=== PATIENT | male | born 2000 | race Hispanic/Latino ===

== ENCOUNTER → 2023-09-10 | Emergency (ER) | payer SELFPAY ==
[~2023-09-10] MED LIST: ACETAMINOPHEN 500 MG TAB ONE; KETOROLAC 30 MG/ML INJ ONE; NA CHLORIDE 0.9% 1,000 ML ONE; dexAMETHasone 10 MG/ML VIAL ONE
[2023-09-10 10:01] LABS: Absolute Lymphocytes (CBC) 1.8 K/uL (0.7-4.9); Hematocrit 46.2 % (39.6-49.0); Lymphocytes % 13.6 % (15.3-44.8); MCV 87.3 fL (80-100); MPV 8.9 fL (7.6-11.3); Platelets 235 thou/uL (152-406)
[2023-09-10 10:06] LABS: SARS-CoV-2 Antigen Rapid Res Positive (Negative)
[2023-09-10 10:21] LABS: Albumin 3.9 g/dL (3.4-5.0); Bilirubin Total 0.9 mg/dL (0.2-1.0); Potassium 3.7 mEq/L (3.5-5.1); Protein, Total 7.6 g/dL (6.4-8.2)
--- NOTE | 2023-09-10 11:14 | ER ---
Nurse's Notes [facility] Name: Leonard Metcalf Age: 23 yrs Sex: Male : 2000 Arrival Date: 09/10/2023 Time: 09:04 Bed 12 Private MD: Diagnosis: SARS-associated coronavirus as the cause of diseases classified elsewhere Presentation: 09/10 09:33 Chief complaint: Patient states: cough, cold, sore throat, body aches since yesterday. iw Coronavirus screen: Client presents with at least one sign or symptom that may indicate coronavirus-19. Ebola Screen: Patient negative for fever greater than or equal to 101.5 degrees Fahrenheit, and additional compatible Ebola Virus Disease symptoms Patient denies exposure to infectious person. Patient denies travel to an Ebola-affected area in the 21 days before illness onset. No symptoms or risks identified at this time. Initial Sepsis Screen: Does the patient meet any 2 criteria? Does the patient have a suspected source of infection?. Risk Assessment: Do you want to hurt yourself or someone else? Patient reports no desire to harm self or others. Onset of symptoms was September 09, 2023. 09:33 Method Of Arrival: Ambulatory iw 09:33 Acuity: JEN 3 iw Historical: - Allergies: 09:35 No Known Allergies; iw - Home Meds: 09:35 None [Active]; iw - PMHx: 09:35 None; iw - PSHx: 09:35 None; iw - Immunization history:: Adult Immunizations not up to date. - Social history:: Smoking status: Reported history of juuling and/or vaping. Screenin:00 [facility] ED Fall Risk Assessment (Adult) Score/Fall Risk Level 0 - 2 = Low Risk. Abuse iw screen: Denies threats or abuse. Denies injuries from another. Nutritional screening: No deficits noted. Tuberculosis screening: No symptoms or risk factors identified. Vital Signs: 09:33 BP 159 / 103; Pulse 114; Resp 18; Temp 97.6; Pulse Ox 96% on R/A; Weight 99.79 kg; iw Height 5 ft. 10 in. ; Pain 7/10; 09:33 Body Mass Index 31.57 (99.79 kg, 177.8 cm) iw 09:33 Pain Scale: Adult ED Course: 09:05 Patient arrived in ED. rg4 09:06 Lokesh Henderson MD is Attending Physician. ec2 09:35 Triage completed. iw 09:36 Arm band placed on. iw 10:03 Inserted saline lock: 22 gauge in right antecubital area, using aseptic technique. ds4 Blood collected. 10:19 Ruthie Strickland RN is Primary Nurse. iw Administered Medications: 10:39 Drug: NS 0.9% IV 1000 ml IV at 1 bolus Per protocol; 1000 mL bolus Route: IV; Rate: 1 iw bolus; Site: right antecubital; 10:39 Drug: Ketorolac IVP 15 mg IVP once Route: IVP; Site: right antecubital; iw 10:39 Drug: Decadron - Dexamethasone IVP 10 mg IVP once Route: IVP; Site: right antecubital; iw 11:04 Not Given (Patient Refused): [id number] mg PO once iw Outcome: 11:14 Discharge ordered by . ec2 12:02 Patient left the ED. iw Signatures: Ruthie Strickland RN RN iw Chris Licona ds4 Roopa Fuller rg4 Lokesh Henderson MD MD ec2 Corrections: (The following items were deleted from the chart) 09:36 09:33 BP 159 / 103; Pulse 114bpm; Resp 18bpm; Pulse Ox 96% RA; iw iw 11:04 10:39 Acetaminophen PO 1000 mg PO iw iw
--- NOTE | 2023-09-10 11:14 | EDPHYS ---
Physician Documentation [facility] Name: Leonard Metcalf Age: 23 yrs Sex: Male : 2000 Arrival Date: 09/10/2023 Time: 09:04 Bed 12 Private MD: ED Physician Lokesh Henderson HPI: 09/10 09:36 This 23 yrs old Male presents to ER via Ambulatory with complaints of Flu ec2 Symptoms. 09:36 Patient arrives today for evaluation of URI symptoms symptoms. Patient reports 1 day of ec2 symptoms. Has been having cough and congestion as well as sore throat and headache and bodyaches. Patient reports taking Robitussin with minimal improvement in symptoms. Reports no vomiting or diarrhea, denies any other concerns.. Historical: - Allergies: 09:35 No Known Allergies; iw - Home Meds: 09:35 None [Active]; iw - PMHx: 09:35 None; iw - PSHx: 09:35 None; iw - Immunization history:: Adult Immunizations not up to date. - Social history:: Smoking status: Reported history of juuling and/or vaping. ROS: 09:36 Constitutional: as per hpi ec2 Exam: 09:36 Constitutional: GEN: NAD Head: atraumatic Eyes: EOMI Ears: External ears are normal. ec2 Mouth: Posterior pharyngeal erythema without exudate appreciated. CV: Tachycardia LUNGS: no respiratory distress, no wheezes, rales, or rhonchi ABD: non-distended SKIN: no evidence of rashes MSK: no evidence of trauma NEURO: moves all extremities equally Vital Signs: 09:33 BP 159 / 103; Pulse 114; Resp 18; Temp 97.6; Pulse Ox 96% on R/A; Weight 99.79 kg; iw Height 5 ft. 10 in. ; Pain 7/10; 09:33 Body Mass Index 31.57 (99.79 kg, 177.8 cm) iw 09:33 Pain Scale: Adult iw MDM: 09:30 Patient medically screened. ec2 09:36 Data reviewed: vital signs. ED course: Patient arrives today for evaluation of URI ec2 signs and symptoms. Examination remarkable for well-appearing nontoxic individual is otherwise in no acute distress with a reassuring examination with some tachycardia noted but will obtain lab work, viral swabs, give the patient crystalloid.. 11:13 ED course: CBC shows slight leukocytosis, metabolic profile is otherwise unremarkable. ec2 COVID testing positive, flu and strep negative. On reassessment patient remains well-appearing in no acute distress. Will discharge home, constellation of symptoms secondary to COVID. Return precautions given. . 09/10 09:36 Order name: CBC with Diff; Complete Time: 11:12 ec2 09/10 09:36 Order name: CMP; Complete Time: 11:12 ec2 09/10 09:36 Order name: SARS RAPID; Complete Time: 11:12 ec2 09/10 09:36 Order name: Influenza Screen (a \T\ B); Complete Time: 11:12 ec2 09/10 09:36 Order name: Strep ec2 09/10 10:09 Order name: Throat Culture EDMS Administered Medications: 10:39 Drug: NS 0.9% IV 1000 ml IV at 1 bolus Per protocol; 1000 mL bolus Route: IV; Rate: 1 iw bolus; Site: right antecubital; 10:39 Drug: Ketorolac IVP 15 mg IVP once Route: IVP; Site: right antecubital; iw 10:39 Drug: Decadron - Dexamethasone IVP 10 mg IVP once Route: IVP; Site: right antecubital; iw 11:04 Not Given (Patient Refused): [id number] mg PO once iw Disposition Summary: 09/10/23 11:14 Discharge Ordered Notes: Location: Home ec2 Condition: Stable ec2 Diagnosis - SARS-associated coronavirus as the cause of diseases classified elsewhere ec2 Followup: ec2 - With: Private Physician - When: - Reason: Recheck today's complaints Discharge Instructions: - Discharge Summary Sheet ec2 - Viral Illness, Adult ec2 Forms: - Work release form ec2 - Medication Reconciliation Form ec2 - Thank You Letter ec2 - Antibiotic Education ec2 - Prescription Opioid Use ec2 - Patient Portal Instructions ec2 - Leadership Thank You Letter ec2 Prescriptions: - Zofran 4 mg Oral Tablet - take 1 tablet ORAL route every 12 hours As needed; 20 tablet; Refills: 0, ec2 Product Selection Permitted - Tessalon Perles 100 mg Oral Capsule - take 1 capsule ORAL route every 8 hours As needed; 15 capsule; Refills: 0, ec2 Product Selection Permitted Signatures: Dispatcher [employer] EDMS Ruthie Strickland SHIN RN iw Lokesh Henderson MD MD ec2 Corrections: (The following items were deleted from the chart) 09:41 09:40 Patient medically screened. ec2 ec2
[2023-09-10 12:58] VITALS: BP 159/103; TEMP 97.6; O2SAT 96
== END ==
LOC: ER 09:04
DX: U07.1 COVID-19 (principal); F17.290 Nicotine dependence, other tobacco product, uncomplicated
CPT/HCPCS: 36415; 80053; 85025; 87070; 87081; 87804; 87811; 96374; 96375; 99284; J1100; J7030